=== PATIENT | male | born 1995 | race Two or more races ===

== ENCOUNTER 2024-07-25 11:43 | Outpatient (REF) | payer OTHER, SELFPAY ==
--- OUTSIDE RECORDS SUMMARY | 2024-07-25 13:00 | XMS_ITS | Encounter Summary ---
Author Organization [employer] Address [address] [facility] 7t [place] [address] Care Team Providers Care Pulmonologist/Intensivist Name Role Phone Margarito Wagoner MD Primary Care Prov ider Encounter Details Date Type Department Care Team (Late st Contact Info) Description 07/25/2024 11:15 AM EDT Office Visit [facility] MED & PEDS [address] [place], [place] [phone] Margarito Wagoner MD [address] [place] [address] Class 2 obesity due to excess calories without serious comorbidity with body mass index (BMI) of 35.0 to 35.9 in adult (Primary Dx); Elevated blood pressure reading Social History Tobacco Use Types Packs/Day Years Used Date Smoking Tobacco: Never Smokeless Tobacco: Never Alcohol Use Standard Drinks/Week Comments Yes 0 (1 standard drink = 0.6 oz pur e alcohol) 4-5 times a year Depression Answer Date Recorded Patient Health Questionnaire-9 Score 0 04/25/2024 Patient Health Questionnaire-9 Score 0 04/25/2024 Last PHQ-9: Questionnaire Data Not on file 0 04/25/2024 Housing Stability Answer Date Recorded What is your housing situation today? I have brina higginbotham 05/28/[address] you li ve. Do you have problems with any of the following? None of the above 05/28/2024 Food Insecurity Answer Date Recorded Within the past 12 months, y ou worried that your food would run out before you got money to buy more: Never True 05/28/2024 Within the past 12 months,th e food you bought just didn't last and you didn't have enough money to get more: Never True Transportation Answer Date Recorded In the past 12 months, has l ack of transportation kept you from medical appts, meetings, work or from getting things needed for daily living? No 05/28/2024 Utilities Answer Date Recorded In the past 12 months, has t he electric, gas, oil or water company threatened to shut off services in your home? No 05/28/2024 Depression Answer Date Recorded Patient Health Questionnaire-2 Score 0 04/25/2024 Internet Access Answer Date Recorded Internet Access Q1 Yes 05/28/2024 Internet Access Q2 Not on file 05/28/2024 Sex and Gender Information Value Date Recorded Sex Assigned at Male 03/20/2024 4:16 PM EST Legal Sex Male 4:14 PM EST Gender Identity Male 03/20/2024 4:16 PM EST Sexual Orientation Straight 05/29/2024 9: 16 AM EDT documented as of this encounter Last Filed Vital Signs Vital Sign Reading Time Taken Comments Blood Pressure 158/102 07/25/2024 11:20 AM EDT Pulse 100 07/25/2024 11:20 AM EDT Temperature 37.1 ??C (98.7 ??F) 07/25/2024 11:20 AM E DT Respiratory Rate 07/25/2024 11:20 AM EDT Oxygen Saturation - - Inhaled Oxygen Concentration - - Weight 111 kg (244 lb) 07/25/2024 11:20 AM EDT Height 177.8 cm (5' 10 ) 07/25/2024 11:20 AM EDT Body Mass Index 35.01 07/25/2024 11:20 AM EDT documented in this encounter Progress Notes * Margarito Escalona MD - 07/25/2024 11:15 AM EDT Subjective Patient ID: Alexandru Mohan is a 28 y.o. male who presents for No chief complaint on file.. Hypertension This is a chronic problem. Pertinent negatives include no chest pain, headaches, malaise/fatigue, palpitations or shortness of breath. Review of Systems Constitutional: Negative for malaise/fatigue. Respiratory: Negative for shortness of breath. Cardiovascular: Negative for chest pain and palpitations. Neurological: Negative for headaches. Objective Physical Exam Constitutional: Appearance: Normal appearance. HENT: Right Ear: Tympanic membrane, ear canal and external ear normal. There is no impacted cerumen. Left Ear: Tympanic membrane, ear canal and external ear normal. There is no impacted cerumen. Cardiovascular: Rate and Rhythm: Normal rate and regular rhythm. Heart sounds: No murmur heard. Pulmonary: Effort: Pulmonary effort is normal. No respiratory distress. Breath sounds: No stridor. No wheezing or rhonchi. Abdominal: General: Abdomen is flat. There is no distension. Palpations: There is no mass. Tenderness: There is no abdominal tenderness. There is no guarding or rebound. Hernia: No hernia is present. Musculoskeletal: General: No swelling or tenderness. Normal range of motion. Cervical back: Normal range of motion. No rigidity or tenderness. Lymphadenopathy: Cervical: No cervical adenopathy. Skin: General: Skin is warm. Coloration: Skin is not jaundiced or pale. Neurological: General: No focal deficit present. Mental Status: He is alert and oriented to person, place, and time. Psychiatric: Mood and Affect: Mood normal. Behavior: Behavior normal. Assessment/Plan Problem List Items Addressed This Visit Elevated blood pressure reading Patient not interested in starting oral medications, oriented to keep bp log target <140/90, keep low sodium diet and exercise as tolerated Other Visit Diagnoses Class 2 obesity due to excess calories without serious comorbidity with body mass index (BMI) of 35.0 to 35.9 in adult - Primary Relevant Orders CBC auto differential Comprehensive Metabolic Panel Hemoglobin A1c Lipid Panel, Standard TSH W/Reflex to FT4 HIV-1/2 Antigen and Antibodies, Fourth Generation, with Reflexes Hepatitis C Antibody with Reflex to HCV, RNA, Quantitative, Real-Time PCR documented in this encounter Miscellaneous Notes * Assessment & Plan Note - Margarito Escalona MD - 07/25/2024 12:50 PM EDTAssociated Problem(s): Elevated blood pressure reading Patient not interested in starting oral medications, oriented to keep bp log target <140/90, keep low sodium diet and exercise as tolerated documented in this encounter Plan of Treatment Upcoming Encounters Date Type Department Care Team (Late st Contact Info) Description 10/02/2024 3:30 PM EDT Telemedicine [facility] MED & PEDS [address] [place] [address] Margarito Wagoner MD [address] [place] [address] Scheduled Orders Name Type Priority Associated Diagnoses Orde r Schedule CBC auto differential Lab Routine Class 2 obesity due to excess calories without serious comorbidity with body mass index (BMI) of 35.0 to 35.9 in adult Expected: 07/25/2024 (Approximate), Expires: 07/25/2025 Comprehensive Metabolic Panel Lab Routine Class 2 obesity due to excess calories without serious comorbidity with body mass index (BMI) of 35.0 to 35.9 in adult Expected: 07/25/2024 (Approximate), Expires: 07/25/2025 Hemoglobin A1c Lab Routine Class 2 obesity due to excess calories without serious comorbidity with body mass index (BMI) of 35.0 to 35.9 in adult Expected: 07/25/2024 (Approximate), Expires: 07/25/2025 Lipid Panel, Standard Lab Routine Class 2 obesity due to excess calories without serious comorbidity with body mass index (BMI) of 35.0 to 35.9 in adult Expected: 07/25/2024 (Approximate), Expires: 07/25/2025 TSH W/Reflex to FT4 Lab Routine Class 2 obesity due to excess calories without serious comorbidity with body mass index (BMI) of 35.0 to 35.9 in adult Expected: 07/25/2024 (Approximate), Expires: 07/25/2025 HIV-1/2 Antigen and Antibodies, Fourth Generation, with Reflexes Lab Routine Class 2 obesity due to excess calories without serious comorbidity with body mass index (BMI) of 35.0 to 35.9 in adult Expected: 07/25/2024 (Approximate), Expires: 07/25/2025 Hepatitis C Antibody with Reflex to HCV, RNA, Quantitative, Real-Time PCR Lab Routine Class 2 obesity due to excess calories without serious comorbidity with body mass index (BMI) of 35.0 to 35.9 in adult Expected: 07/25/2024, Expires: 07/25/2025 documented as of this encounter Visit Diagnoses Diagnosis Class 2 obesity due to excess calories without serious comorbidity with body mass index (BMI) of 35.0 to 35.9 in adult- Primary Elevated blood pressure reading Elevated blood pressure reading without diagnosis of hypertension documented in this encounter Additional Health Concerns Assessment Noted Time PHQ-9 Depression Total Score: 0 04/25/19 9:07 AM EST documented as of this encounter Care Teams Pulmonologist/Intensivist Relationship Specialty Start Date End Date Margarito Wagoner MD [address] [place] [id number] PCP - General Internal Medicine 04/25/24 documented as of this encounter
--- OUTSIDE RECORDS SUMMARY | 2024-07-25 13:00 | XMS_ITS | Encounter Summary ---
Author Organization [employer] Address [address] [facility] 7t [place] [address] Care Team Providers Care Pile Operator Name Role Phone Margarito Wagoner MD Primary Care Prov ider Reason for Visit * Reason Onset Date Comments Appointment Request 05/16/2024 Encounter Details Date Type Department Care Team (Late st Contact Info) Description 05/16/[address] [facility] MEDICINE [address] [place] [address] Margarito Wagoner MD [address] [place] [address] Appointment Request Social History Tobacco Use Types Packs/Day Years Used Date Smoking Tobacco: Never Smokeless Tobacco: Never Alcohol Use Standard Drinks/Week Comments Yes 0 (1 standard drink = 0.6 oz pur e alcohol) 4-5 times a year Depression Answer Date Recorded Patient Health Questionnaire-9 Score 0 04/25/2024 Patient Health Questionnaire-9 Score 0 04/25/2024 Last PHQ-9: Questionnaire Data Not on file 0 04/25/2024 Depression Answer Date Recorded Patient Health Questionnaire-2 Score 0 04/25/2024 Sex and Gender Information Value Date Recorded Sex Assigned at Male 03/20/2024 4:16 PM EST Legal Sex Male 4:14 PM EST Gender Identity Male 03/20/2024 4:16 PM EST Sexual Orientation Straight 05/29/2024 9: 16 AM EDT documented as of this encounter Miscellaneous Notes * Telephone Encounter - Kareem Ross - 05/16/2024 3:56 PM EDT TC from pt requesting a Appt with PCP. Pt states that he talked with PCP and that he was told to make a Apt to come back in and gets some blood test done. Contact pt at [phone] documented in this encounter Plan of Treatment Upcoming Encounters Date Type Department Care Team (Late st Contact Info) Description 10/02/2024 3:30 PM EDT Telemedicine [facility] MED & PEDS [address] [place] [address] Margarito Wagoner MD [address] [place] [address] documented as of this encounter Visit Diagnoses Not on filedocumented in this encounter Additional Health Concerns Assessment Noted Time PHQ-9 Depression Total Score: 0 04/25/19 9:07 AM EST documented as of this encounter Care Teams Pile Operator Relationship Specialty Start Date End Date Margarito Wagoner MD [address] [place] [address] PCP - General Internal Medicine 04/25/24 documented as of this encounter
--- OUTSIDE RECORDS SUMMARY | 2024-07-25 13:00 | XMS_ITS | Encounter Summary ---
Author Organization [employer] Address [address] [facility] [address] 7[address] [place] [address] Care Team Providers Care Pulp Roller Name Role Phone Margarito Wagoner MD Primary Care Prov ider Encounter Details Date Type Department Care Team (Latest Contact Info) Description 07/25/2024 Travel Social History Tobacco Use Types Packs/Day Years [...] your housing situation today? I have brina neftaly 05/28/[address] you li [...] AM EDT documented as of this encounter Plan of Treatment Upcoming Encounters Date Type Department Care Team (Late st Contact Info) Description 10/02/2024 3:30 PM EDT Telemedicine [facility] MED & PEDS [address] [place] [address] Margarito Wagoner MD [address] [place] [address] documented as of this encounter Visit Diagnoses Not on filedocumented in this encounter Additional Health Concerns Assessment Noted Time PHQ-9 Depression Total Score: 0 04/25/19 9:07 AM EST documented as of this encounter Care Teams Pulp Roller Relationship Specialty Start Date End Date Margarito Wagoner MD [address] [place] [address] PCP - General Internal Medicine 04/25/24 documented as of this encounter
--- OUTSIDE RECORDS SUMMARY | 2024-07-25 13:00 | XMS_ITS | Clinical Summary ---
Author Organization [employer] Address [address] [facility] 7[address] [place] [address] Care Team Providers Care Repeat Photocomposing Machine Operator Name Role Phone Margarito Wagoner MD Primary Care Prov ider Allergies No known active allergies Medications Blood Pressure kitIndications: Elevated blood pressure reading Use to check blood pressure daily and if symptomatic 1 kit Active Active Problems Problem Noted Date Diagnosed Date Elevated blood pressure reading 07/25/2024 Assessment & Plan (07/25/2024 12:50 PM EDT): Patient not interested in starting oral medications, oriented to keep bp log target <140/90, keep low sodium diet and exercise as tolerated Encounter to establish care 04/25/2024 Assessment & Plan (04/25/2024 9:14 AM EST): Last pcp visit 2017 ER: - Hospitalization:- Pmhx:- Pshx: right shoulder rotator cuff 2023 All: - Meds: - Encounters Date Type Department Care Team Description 07/25/2024 11:15 AM EDT Office Visit [facility] MED & PEDS [address] [place] [address] Margarito Wagoner MD Class 2 obesity due to excess calories without serious comorbidity with body mass index (BMI) of 35.0 to 35.9 in adult (Primary Dx); Elevated blood pressure reading 07/25/2024 Travel 05/31/2024 Telephone [facility] [address] [place] [address] Tavia Prakash FNP PSG ORDER 05/28/2024 9:00 AM EDT Office Visit [facility] MED & PEDS [address] [place] [address] Tavia Prakash FNP Witnessed episode of apnea (Primary Dx); Healthcare maintenance; Elevated blood pressure reading; Loud snoring; Genital lesion, male 05/28/2024 Travel 05/25/2024 Telephone [facility] CHC MED & PEDS [address] [place] [address] Margarito Wagoner MD Chart Prep 05/25/2024 Telephone [facility] MED & PEDS [address] [place], [place] [phone] Margarito Wagoner MD 05/16/2024 Telephone [facility] MEDICINE [address] [place] [address] Margarito Wagoner MD Appointment Request from Last 3 Months Family History Medical History Relation Name Comments No Known Problems Father Thyroid cancer Mother Thyroid disease Mother Relation Name Status Comments Father Mother Social History Tobacco Use Types Packs/Day Years Used Date Smoking Tobacco: Never Smokeless Tobacco: Never Tobacco Cessation:Counseling Given: Not Answered Alcohol Use Standard Drinks/Week Comments Yes 0 [...] Orientation Straight 05/29/2024 9: 16 AM EDT Last Filed Vital Signs Vital Sign Reading Time Taken Comments Blood Pressure 158/102 07/25/2024 11:20 AM EDT Pulse 100 07/25/2024 11:20 AM EDT Temperature 37.1 ??C (98.7 ??F) 07/25/2024 11:20 AM E DT Respiratory Rate 20 07/25/2024 11:20 AM EDT Oxygen Saturation 97% 05/28/2024 9:13 AM EDT Inhaled Oxygen Concentration - - Weight 111 kg (244 lb) 07/25/2024 11:20 AM EDT Height 177.8 cm (5' 10 ) 07/25/2024 11:20 AM EDT Body Mass Index 35.01 07/25/2024 11:20 AM EDT Plan of Treatment Upcoming Encounters Date Type Department Care Team (Late st Contact Info) Description 10/02/2024 3:30 PM EDT Telemedicine [facility] CHC MED & PEDS [address] [place] [address] Margarito Wagoner MD [address] [place] [address] Health Maintenance Due Date Last Done Comments HIV Screening 1995 Lipid Panel 1995 Family Planning (PISQ) 07/29/2010 Hepatitis C Screening 07/29/2013 DTaP/Tdap/Td Vaccines (1 - Tdap) 07/29/2014 Hepatitis B Vaccines (1 of 3 - 19+ 3-dose series) 07/29/2014 COVID-19 Vaccine ( - 2023-2 5 season) 2023 Influenza Vaccine (#1) 2023 Depression Screening 04/25/2025 04/25/2024, 04/25/2024 Alcohol/Substance Use Screening 05/28/2025 05/28/2024 Disability Screening 05/28/2025 05/28/2024 SDOH Screening 05/28/2025 05/28/2024 Tobacco Screening 05/28/2025 05/28/2024 Zoster Vaccines (1 of 2) 07/29/2045 RSV Patients and Patients Aged 60 years or older (1 - 1-dose 75+ series) 07/29/2070 HIB Vaccines Aged Out No longer eligi ble based on patient's age to complete this topic HPV Vaccines Aged Out No longer eligi ble based on patient's age to complete this topic Hepatitis A Vaccines Aged Out No long er eligible based on patient's age to complete this topic IPV Vaccines Aged Out No longer eligi ble based on patient's age to complete this topic Meningococcal B Vaccine Aged Out No l onger eligible based on patient's age to complete this topic Meningococcal Vaccine Aged Out No fatuma ric eligible based on patient's age to complete this topic Pneumococcal Vaccine: Pediatrics (0 to 5 Years) and At-Risk Patients (6 to 49) Years) Aged Out No longer eligible b ased on patient's age to complete this topic RSV under 20 months Aged Out No longe r eligible based on patient's age to complete this topic Rotavirus Vaccines Aged Out No longer eligible based on patient's age to complete this topic Insurance [facility] , [address] [place] [address] Care Teams Repeat Photocomposing Machine Operator Relationship Specialty Start Date End Date Margarito Wagoner MD [address] [place] [id number] PCP - General Internal Medicine 04/25/24
--- OUTSIDE RECORDS SUMMARY | 2024-07-25 13:00 | XMS_ITS | Clinical Summary ---
Author Organization [facility] Address [address] [place] [address] Care Team Providers Care Clam Picker Name Role Phone Jessenia Mo MD Primary Care Provid er Allergies No known active allergies Medications No known medications Family History Medical History Relation Name Comments Cancer Mother Hypertension Mother Relation Name Status Comments Mother Social History Tobacco Use Types Packs/Day Years Used Date Smoking Tobacco: Never Smokeless Tobacco: Never Alcohol Use Standard Drinks/Week Comments No 0 (1 standard drink = 0.6 oz pur e alcohol) Sex and Gender Information Value Date Recorded Sex Assigned at Not on file Gender Identity Not on file Sexual Orientation Not on file Last Filed Vital Signs Vital Sign Reading Time Taken Comments Blood Pressure - - Pulse - - Temperature - - Respiratory Rate - - Oxygen Saturation - - Inhaled Oxygen Concentration - - Weight 86.2 kg (190 lb) 10/16/2018 9:18 AM EDT Height 180.3 cm (5' 11 ) 10/16/2018 9:18 AM EDT Body Mass Index 26.5 10/16/2018 9:18 AM EDT Plan of Treatment Health Maintenance Due Date Last Done Comments Hepatitis B Vaccines (1 of 3 - 3-dose series) 1995 Hepatitis C Screening 1995 COVID-19 Vaccine (#1) 01/30/1996 Depression Screening 2007 BMI Counseling 07/29/2013 Preventative Health Evaluation 07/29/2013 DTap / Tdap / Td (7 - Td or Tdap) 06/26/2017 06/27/2007, 1999, 02/15/1997, Additional history exists Influenza Vaccine (#1) 2023 1, 01/06/2010, 12/19/2008 Pneumococcal Vaccine Aged Out No long er eligible based on patient's age to complete this topic RSV Ped < 20 months Aged Out No longe r eligible based on patient's age to complete this topic Care Teams Clam Picker Relationship Specialty Start Date End Date Jessenia Mo MD PCP - General Internal Medicine 05/30/18
[2024-07-25 14:13] LABS: MANUAL DIFF FLAG NO
[2024-07-25 14:17] LABS: Basophils Percent Auto 0.3 % (0-2); Eosinophils Absolute Auto 0.1 X10*3/uL (0.0-0.4); Eosinophils Percent Auto 1.3 % (0-4); Hematocrit 50.3 % (42.0-52.0); Hemoglobin 17.8 g/dl (14.0-18.0); Imm Gran Abs Auto 0.04 X10*3/uL (0.00-0.03); Imm Gran Pct Auto 0.7 % (0.0-0.4); Lymphocytes Absolute Auto 1.5 X10*3/uL (1.2-4.9); Lymphocytes Percent Auto 24.5 % (20-40); Mean Corpuscular HGB Conc 35.4 g/dl (31.0-36.0); Mean Corpuscular Hemoglobin 31.1 pg (27.0-33.0); Mean Corpuscular Volume 87.8 fL (80.0-98.0); Mean Platelet Volume 11.7 fL (9.4-12.4); Monocytes Absolute Auto 0.4 X10*3/uL (0.1-1.2); Monocytes Percent Auto 6.9 % (2-11); Neutrophils Absolute Auto 4.1 x10*3/uL (2.0-8.3); Neutrophils Percent Auto 66.3 % (45-73); Platelet Count 200 X10*3/uL (160-400); Red Blood Count 5.73 X10*6/uL (4.60-5.80); Red Cell Distribution Width 12.5 % (11.0-16.0); White Blood Count 6.1 X10*3/uL (4.8-10.8)
[2024-07-25 14:34] LABS: Estimated Average Glucose 103 mg/dL; Hemoglobin A1C 148.8135 umol/L; Hemoglobin A1c % 5.2 % (<6.0); Total Hemoglobin (HGBA1C) 4465.8971 umol/L
[2024-07-25 15:41] LABS: Alanine Aminotransferase 77 U/L (0-40); Albumin Level 4.7 g/dL (3.5-5.0); Alkaline Phosphatase 58 U/L (39-117); Anion Gap 12 (12-20); Aspartate Amino Transferase 44 U/L (5-37); Blood Urea Nitrogen 10 mg/dL (9-16); Calcium 9.4 mg/dL (8.4-10.2); Carbon Dioxide 28 mmol/L (22-29); Chloride 105 mmol/L (96-108); Cholesterol 238 mg/dL (<200); Estimated Glomerular Filt Rate > 60; Glucose Random 80 mg/dL (60-115); HDL Cholesterol 34 mg/dL (>40); LDL Cholesterol Calculated 166 mg/dL (<100); Potassium 3.9 mmol/L (3.3-5.1); Sodium 141 mmol/L (135-145); TSH reflex Free T4 1.39 uIU/mL (0.32-4.0); Total Protein 7.3 g/dL (6.5-8.0); Triglycerides 192 mg/dL (<150)
[2024-07-26 04:41] LABS: HIV AB/AG Nonreactive (Nonreactive); HIV Num 1 0.06 S/CO (0.00-0.99); ~HepC Num1 0.08 S/CO (0.00-0.79); ~Hepatitis C Antibody Nonreactive (Nonreactive)
== END 2024-07-25 11:44 | disposition home or self-care (01) ==
LOC: HO.CHCLDS 11:43
PROVIDERS: Visit Provider Internal Medicine
DX: E66.09 Other obesity due to excess calories (principal); Z68.35 Body mass index [BMI] 35.0-35.9, adult; E66.812 Obesity, class 2; Z13.1 Encounter for screening for diabetes mellitus
CPT/HCPCS: 36415; 80053; 80061; 83036; 84443; 85025; 86803; 87389

== ENCOUNTER 2024-09-19 09:05 | Outpatient (REF) | payer OTHER, SELFPAY ==
--- NOTE | ~2024-09-19 | US_ITS ---
EXAMINATION: US ABDOMEN LIMITED HISTORY: TRANSAMINITIS TECHNIQUE: Real-time grayscale ultrasound imaging of the right upper quadrant was performed and images were reviewed. COMPARISON: There are no prior studies available for comparison. FINDINGS: Liver: The right lobe of the liver measures 16.4 cm in size. The left lobe of the liver measures 9.9 cm in size. The liver demonstrates increased echotexture, consistent with steatosis. No focal mass or intrahepatic biliary ductal dilatation is identified. There is normal hepatopedal flow in the portal vein. Gallbladder and biliary tree: The gallbladder is unremarkable, without evidence of calculi, wall thickening, or pericholecystic fluid. There is no sonographic Valerio sign. The common bile duct is normal in caliber measuring 3 mm. Right Kidney: The right kidney measures 11.3 cm in length. The right kidney is unremarkable, without evidence of masses, hydronephrosis, or calculi. Pancreas: The pancreatic head, neck, and body are unremarkable. The pancreatic tail is obscured by bowel gas. Abdominal aorta and inferior vena cava: The visualized portions of the abdominal aorta and inferior vena cava are normal in caliber. There is no free fluid in the right upper quadrant. US/US abdomen limited IMPRESSION: Hepatic steatosis. Otherwise unremarkable right upper quadrant ultrasound. Electronically signed by: Gilles Dan MD 09/19/2024 09:44 AM EDT
--- OUTSIDE RECORDS SUMMARY | 2024-09-19 09:22 | XMS_ITS | Clinical Summary ---
Author Organization [employer] Address [address] [facility] [address] [place] [address] Care Team Providers Care Dental Financial Coordinator Name Role Phone Margarito Wagoner MD Primary [...] Encounters Date Type Department Care Team Description 08/17/2024 Results Follow-Up [facility] [address] [place] [address] Margarito Wagoner MD CBC auto differential, Comprehensive Metabolic Panel, Hemoglobin A1c, Additional followed-up results: 4 07/25/2024 11:15 AM EDT Office Visit [facility] [address] [place] [address] Margarito Wagoner MD Class 2 obesity due to excess calories without serious comorbidity with body mass index (BMI) of 35.0 to 35.9 in adult (Primary Dx); Elevated blood pressure reading 07/25/2024 Travel from Last 3 Months Family History Medical [...] 100 07/25/2024 11:20 AM EDT Temperature 37.1 C (98.7 F) 07/25/2024 11:20 AM EDT Respiratory Rate 20 07/25/2024 11:20 AM EDT [...] Description 10/02/2024 3:30 PM EDT Telemedicine [facility] [address] [place] [address] Margarito Wagoner MD [address] [place], [place] [phone] Health Maintenance Due Date Last Done Comments Family Planning (PISQ) 07/29/2010 HPV Vaccines (1 - Male 3-dos e series) 07/29/2010 DTaP/Tdap/Td Vaccines (1 - Tdap) 07/29/2014 Hepatitis B Vaccines (1 of 3 - 19+ 3-dose series) 07/29/2014 COVID-19 Vaccine (1 - 2023-2 5 season) 2023 Influenza Vaccine (#1) 2024 Depression Screening 04/25/2025 04/25/2024, 04/25/2024 Alcohol/Substance Use Screening 05/28/2025 05/28/2024 Disability Screening 05/28/2025 05/28/2024 SDOH Screening 05/28/2025 05/28/2024 Tobacco Screening 05/28/2025 05/28/2024 Lipid Panel 07/25/2029 07/25/2024 Zoster Vaccines (1 of 2) 07/29/2045 RSV Patients and Patients Aged 60 years or older (1 - 1-dose 75+ series) 07/29/2070 HIV Screening Completed 07/25/2024 Hepatitis C Screening Completed 07/25/2024 HIB Vaccines Aged Out No longer eligi [...] Years) and At-Risk Patients (6 to 49) Years Aged Out No longer eligible b ased on patient's age to complete this topic RSV under 20 months Aged Out No longe r eligible based on patient's age to complete this topic Rotavirus Vaccines Aged Out No longer eligible based on patient's age to complete this topic Procedures Procedure Name Priority Date/Time Associated Diagnosis Comments HEPATITIS C AB W/REFL TO HCV RNA, QN, PCR Routine 07/25/2024 11:48 AM EDT Class 2 obesity due to excess calories without serious comorbidity with body mass index (BMI) of 35.0 to 35.9 in adult HIV 1/2 ANTIGEN/ANTIBODY, FOURTH GENERATION W/RFL Routine 07/25/2024 11:48 AM EDT Class 2 obesity due to excess calories without serious comorbidity with body mass index (BMI) of 35.0 to 35.9 in adult HEMOGLOBIN A1C Routine 07/25/2024 11:48 AM EDT Class 2 obesity due to excess calories without serious comorbidity with body mass index (BMI) of 35.0 to 35.9 in adult CBC WITH AUTO DIFFERENTIAL Routine 07/25/2024 11:48 AM EDT Class 2 obesity due to excess calories without serious comorbidity with body mass index (BMI) of 35.0 to 35.9 in adult TSH W/REFLEX TO FT4 Routine 07/25/2024 1 1:14 AM EDT Class 2 obesity due to excess calories without serious comorbidity with body mass index (BMI) of 35.0 to 35.9 in adult LIPID PANEL, STANDARD Routine 07/25/2024 11:14 AM EDT Class 2 obesity due to excess calories without serious comorbidity with body mass index (BMI) of 35.0 to 35.9 in adult COMPREHENSIVE METABOLIC PANEL Routine 07/25/2024 11:14 AM EDT Class 2 obesity due to excess calories without serious comorbidity with body mass index (BMI) of 35.0 to 35.9 in adult from Last 3 Months Results * (ABNORMAL) CBC auto differential (07/25/2024 11:48 AM EDT) White Blood Count 6.1 4.8 - 10.8 X10*3/uL [facility] Red Blood Count 5.73 4.60 - 5.80 X10*6/uL [facility] Hemoglobin 17.8 14.0 - 18.0 g/dl [facility] Hematocrit 50.3 42.0 - 52.0 % [facility] Mean Corpuscular Volume 87.8 80.0 - 98.0 fL [facility] Mean Corpuscular Hemoglobin 31.1 27.0 - 33.0 pg [facility] Mean Corpuscular HGB Conc 35.4 31.0 - 36.0 g/dl [facility] Red Cell Distribution Width 12.5 11.0 - 16.0 % [facility] Platelet Count 200 160 - 400 X10*3/uL [facility] Mean Platelet Volume 11.7 9.4 - 12.4 fL [facility] Neutrophils Percent Auto 66.3 45 - 73 % [facility] Imm Gran Pct Auto 0.7(H) 0.0 - 0.4 % [facility] Lymphocytes Percent Auto 24.5 20 - 40 % [facility] Monocytes Percent Auto 6.9 2 - 11 % [facility] Eosinophils Percent Auto 1.3 0 - 4 % [facility] Basophils Percent Auto 0.3 0 - 2 % [facility] NRBC Pct Auto 0.0 0.0 - 0.2 /100WBC [facility] Neutrophils Absolute Auto 4.1 2.0 - 8.3 x10*3/uL [facility] Imm Gran Abs Auto 0.04(H) 0.00 - 0.03 X10*3/uL [facility] Lymphocytes Absolute Auto 1.5 1.2 - 4.9 X10*3/uL [facility] Monocytes Absolute Auto 0.4 0.1 - 1.2 X10*3/uL [facility] Eosinophils Absolute Auto 0.1 0.0 - 0.4 X10*3/uL [facility] Basophils Absolute Auto 0.0 0.0 - 0.2 X10*3/uL [facility] NRBC Abs Auto 0.000 0.0 - 0.012 X10*3/uL [facility] Blood Venous blood specimen / Unknown 07/25/2024 11:48 AM EDT 07/25/2024 2:08 PM EDT Margarito Escalona MD LAB BLOOD ORDERABL ES Final Result Performing Organization Address [facility] Co de Phone Number [facility] [address] [place] [phone] * Hepatitis C Antibody with Reflex to HCV, RNA, Quantitative, Real-Time PCR (07/25/2024 11:48 AM EDT) Pathologist [facility] Hepatitis C Antibody Nonreactive Nonreactive [facility] Comment:Antibodies to HCV no t detected; does not exclude early acuteHCV infection. Blood Venous blood specimen / Unknown 07/25/2024 11:48 AM EDT 07/25/2024 2:08 PM EDT Margarito Escalona MD LAB BLOOD ORDERABL ES Final Result Performing Organization Address City/[facility] Co de Phone Number [facility] [address] [place] [phone] * HIV-1/2 Antigen and Antibodies, Fourth Generation, with Reflexes (07/25/2024 11:48 AM EDT) HIV AB/AG Nonreactive Nonreactive [facility] Comment:HIV-1 p24 Ag and/or HIV-1/HIV-2 Ab not detected.A test result that is nonreactive does not exclude thepossibility of exposure to or infection with HIV-1 and/orHIV-2. Nonreactive results in this assay for individualswith prior exposure to HIV-1 and/or HIV-2 may be due toantigen and antibody levels that are below the limit ofdetection of this assay.The [employer] HIV Ag/Ab Combo assay result andsupplemental assay results should be interpreted inconjunction with the patient's clinical presentation,history and other laboratory results. If the results areinconsistent with clinical evidence, additional testing issuggested to confirm the result. Blood Venous blood specimen / Unknown 07/25/2024 11:48 AM EDT 07/25/2024 2:08 PM EDT Margarito Escalona MD LAB BLOOD ORDERABL ES Final Result Performing Organization Address [facility] Co de Phone Number [facility] [address] [place] [phone] * Hemoglobin A1c (07/25/2024 11:48 AM EDT) Hemoglobin A1c 5.2 <6.0 % [facility] Comment:Hemoglobin A1C Refer ence Range Adults: 4.8 - 6.0 % Non diabetic: < 6.0 % Goal: < 7.0 %Additional Action Suggested: > 8.0 %Note: Hemoglobin A1c results are invalid for patients with abnormal amounts of HbF. Blood transfusions may impact the HbA1c concentration in the patient sample. Estimated Average Glucose 103 mg/dL [facility] Comment:eAG = Estimated ave rage glucose which is %A1C expressed asaverage glucose, using the formula of the P0Z-FbjnwjnTqzlzfz Glucose study (ADAG), Diabetes Care, Vol.31,#8,2007 Blood Venous blood specimen / Unknown 07/25/2024 11:48 AM EDT 07/25/2024 2:08 PM EDT us Margarito Escalona MD LAB BLOOD ORDERABL ES Final Result Performing Organization Address [facility] Co de Phone Number [facility] [address] [place] [phone] * TSH W/Reflex to FT4 (07/25/2024 11:14 AM EDT) TSH reflex Free T4 1.39 0.32 - 4.0 uIU/mL [facility] Blood Venous blood specimen / Unknown 07/25/2024 11:14 AM EDT 07/25/2024 2:08 PM EDT Margarito Escalona MD LAB BLOOD ORDERABL ES Final Result [facility] [address] [place] [phone] * (ABNORMAL) Lipid Panel, Standard (07/25/2024 11:14 AM EDT) Triglycerides 192(H) <150 mg/dL [facility] Comment:Desirable Triglyceri de: less than 150 mg/dLBorderline High Triglyceride 150-199 mg/dLHigh Triglyceride: 200-499 mg/dLVery High Triglyceride: greater than or equal to 5OO mg/dL Cholesterol 238(H) <200 mg/dL [facility] Comment:Desirable Cholestero l: less than 200 mg/dLBorderline High Cholesterol: 200-239 mg/dLHigh Cholesterol: greater than 239 mg/dL LDL Cholesterol Calculated 166(H) <100 mg/dL [facility] Comment:Desirable LDL: less than 100 mg/dLNear Optimal/Above Optimal LDL: 110- 129 mg/dLBorderline High LDL: 130-159 mg/dLHigh LDL: 160-189 mg/dLVery High LDL: greater than or equal to 190 mg/dL HDL Cholesterol 34(L) >40 mg/dL [facility] Comment:Desirable HDL: great er than 40 mg/dL Note: This HDL assay may give artificially low results in patients with liver disease. Blood Venous blood specimen / Unknown 07/25/2024 11:14 AM EDT 07/25/2024 2:08 PM EDT us Margarito Escalona MD LAB BLOOD ORDERABL ES Final Result Performing Organization Address City/[facility]/ZIP Co de Phone Number [facility] [address] [place] [phone] * (ABNORMAL) Comprehensive Metabolic Panel (07/25/2024 11:14 AM EDT) Sodium 141 135 - 145 mmol/L [facility] Potassium 3.9 3.3 - 5.1 mmol/L [facility] Chloride 105 96 - 108 mmol/L [facility] Carbon Dioxide 28 22 - 29 mmol/L [facility] Anion Gap 12 12 - 20 [facility] Urea Nitrogen (BUN) 10 9 - 16 mg/dL [facility] Creatinine, Serum 1.13 0.5 - 1.4 mg/dL [facility] Estimated Glomerular Filt Rate >60 [facility] Comment:Chronic Kidney Disea se: Estimated GFR < 60 mL/min/[id number] Kidney Disease: Estimated GFR < 15 mL/min/1.73m2 Glucose 80 60 - 115 mg/dL [facility] Calcium 9.4 8.4 - 10.2 mg/dL [facility] Bilirubin, Total 1.0 0.0 - 1.0 mg/dL [facility] Aspartate Amino Transferase 44(H) 5 - 37 U/L [facility] Alanine Aminotransferase 77(H) 0 - 40 U/L [facility] Total Protein 7.3 6.5 - 8.0 g/dL [facility] Albumin Level 4.7 3.5 - 5.0 g/dL [facility] Alkaline Phosphatase 58 39 - 117 U/L [facility] Blood Venous blood specimen / Unknown 07/25/2024 11:14 AM EDT 07/25/2024 2:08 PM EDT Margarito Escalona MD LAB BLOOD ORDERABL ES Final Result Performing Organization Address City/[facility]/ZIP Co de Phone Number [facility] [address] [place] [phone] from Last 3 Months Insurance [facility] Care Teams Dental Financial Coordinator Relationship Specialty Start Date End Date SierraMargarito Muñoz MD [address] [place] [phone] PCP - General Internal Medicine 04/25/24
--- OUTSIDE RECORDS SUMMARY | 2024-09-19 09:22 | XMS_ITS | Clinical Summary ---
Author Organization [facility] Address [address] [place] [id number] Care Team Providers Care Lay Out Machine Operator Name Role Phone Jessenia Mo MD Primary [...] 02/15/1997, Additional history exists Influenza Vaccine (#1) 2024 1, 01/06/2010, 12/19/2008 Pneumococcal Vaccine Aged Out No long er eligible based on patient's age to complete this topic RSV Ped < 20 months Aged Out No longe r eligible based on patient's age to complete this topic Care Teams Lay Out Machine Operator Relationship Specialty Start Date End Date Jessenia Mo MD PCP - General Internal Medicine 05/30/18
== END 2024-09-19 09:06 | disposition home or self-care (01) ==
LOC: HO.HMGCX 09:05
PROVIDERS: PCP Internal Medicine; Visit Provider Internal Medicine
DX: R74.01 Elevation of levels of liver transaminase levels (principal)
CPT/HCPCS: 76705

== ENCOUNTER → 2024-09-19 09:14 | Outpatient (BNV) | payer OTHER, SELFPAY | PROVIDERS: PCP Internal Medicine; Visit Provider Radiology Diagnostic Radiology | DX: K76.0 Fatty (change of) liver, not elsewhere classified (principal) | CPT/HCPCS: 76705 ==